=== PATIENT | male | born 1950 | race Caucasian/White ===

== ENCOUNTER 2018-06-21 09:13 | Day surgery (SDC) | payer BC ==
[2018-06-21] MEDS ORDERED: Lactated Ringers 1,000 ML IV SCH (09:45)
[2018-06-21] MEDS ORDERED: Midazolam 1 MG/ML 2 ML SDV ONE (10:18)
[2018-06-21] MEDS ORDERED: Propofol 200 MG/20 ML SDV ONE (10:18)
[2018-06-21] MEDS ORDERED: fentaNYL 100 MCG/2 ML SDV ONE (10:18)
[2018-06-21 11:47] VITALS: BP 126/47
--- NOTE | 2018-06-22 07:35 | OR ---
DATE OF PROCEDURE: 06/21/2018 PREOPERATIVE DIAGNOSES: Abdominal pain, history of colon polyps. POSTOPERATIVE DIAGNOSES: Abdominal pain, history of colon polyps, mild gastritis, diverticulosis. PROCEDURE PERFORMED: Esophagogastroduodenoscopy with antral biopsies for CLOtest and for pathology to look for Helicobacter pylori. Colonoscopy to the cecum. SURGEON: Pepito Hernandez MD ANESTHESIA: IV anesthesia with monitored anesthesia care. INDICATION: This 67-year-old white male is referred for upper and lower endoscopy because of abdominal pain. He also has a history of colon polyps. He says that he had a colonoscopy at the age he should have, which would be 51, and then 5 years later. The polyp was seen when he was 51. At 56, apparently it was clear. It is now 11 years since his last colonoscopy. He says he took a course of Nexium, which did not help with his abdominal pain. I counseled him for upper and lower endoscopy with possible biopsy, including risks and alternatives, and he gave his informed consent to proceed. DESCRIPTION OF PROCEDURE: The patient was placed in the left lateral decubitus position. IV anesthesia was administered by the Anesthesia Service. Time-out was held. The flexible video Olympus upper endoscope was passed through his mouth, down his esophagus, and into his stomach. The scope was easily passed through the pylorus into the duodenum, reaching its third portion. The scope was then slowly withdrawn, examining the mucosa throughout. The duodenal mucosa appeared unremarkable. The scope was brought up through the pylorus into the antrum. There was some mild erythema present, suggestive of mild gastritis. We did obtain antral biopsies for CLOtest and for pathology to look for Helicobacter pylori. The scope was retroflexed. The proximal stomach appeared unremarkable. The scope was straightened and brought up through the GE junction. This appeared unremarkable. The scope was brought up through the unremarkable-appearing esophagus and was removed. Next, a rectal exam was performed, which was unremarkable. The flexible video Olympus colonoscope was introduced through his anus, up his rectum, out his colon, all the way to the cecum. Once the cecum was reached, the scope was slowly withdrawn, examining the mucosa throughout. No mucosal abnormalities were noted until we reached the left colon. Here, we saw a single diverticulum. There was no bleeding or inflammation associated with it. The scope was retroflexed in the rectum with the distal rectum appearing unremarkable. The scope was straightened and removed. He tolerated the procedure well. Pepito Hernandez MD /[id number]
== END 2018-06-21 12:00 | disposition home or self-care (01) ==
LOC: JP.SDS 09:13
PROVIDERS: ATTEND Surgery
DX: R10.9 Unspecified abdominal pain (principal); K29.50 Unspecified chronic gastritis without bleeding; K57.30 Diverticulosis of large intestine without perforation or abscess without bleeding
CPT/HCPCS: 43239; 45378; 87081; 88305; J2250; J2704; J3010; J7120

== ENCOUNTER 2024-05-10 06:29 | Day surgery (SDC) | payer MEDICARE, BC ==
[2024-05-10] MEDS ORDERED: fentaNYL 250 MCG/5 ML SDV ONE (07:19)
[2024-05-10] MEDS ORDERED: Dexamethasone 4 MG/ML SDV ONE (07:20)
[2024-05-10] MEDS ORDERED: Ondansetron 4 MG/2 ML SDV ONE (07:20)
[2024-05-10] MEDS ORDERED: Glycopyrrolate 0.2 MG/ML 5 ML MDV ONE (07:20)
[2024-05-10] MEDS ORDERED: Rocuronium 50 MG/5 ML Vial ONE (07:20)
[2024-05-10] MEDS ORDERED: Propofol 200 MG/20 ML SDV ONE (07:20)
[2024-05-10] MEDS ORDERED: Succinylcholine 200 MG/10 ML MDV ONE (07:20)
[2024-05-10] MEDS ORDERED: Neostigmine Methylsulfate 10 MG/10 ML MDV ONE (07:20)
[2024-05-10] MEDS: Lactated Ringers 1,000 ML IV SCH (07:30)
[2024-05-10] MEDS: ceFAZolin 2 GM in Premix Bag 1 BAG IV ONE (08:20)
[2024-05-10] MEDS: Bupivacaine 0.25%/EPINEPHrine 1:200,000 30 ML SDV ONE (08:29)
[2024-05-10] MEDS ORDERED: Lactated Ringers 1,000 ML ONE (09:10)
[2024-05-10] MEDS ORDERED: Ketorolac 30 MG/ML SDV ONE (09:13)
[2024-05-10] MEDS ORDERED: Sugammadex Sodium 200 MG/2 ML VIAL IV ONE (09:13)
[2024-05-10] MEDS ORDERED: fentaNYL 100 MCG/2 ML SDV ONE ×2 (09:20→09:43)
[2024-05-10] MEDS: Acetaminophen 500 MG Tab PO ONE (11:33)
[2024-05-10] MEDS: oxyCODONE 5 MG Tab PO ONE (11:36)
[2024-05-10 13:12] VITALS: BP 135/88; PULSE 68
== END 2024-05-10 12:10 | disposition home or self-care (01) ==
LOC: JP.SDS 06:29
PROVIDERS: ATTEND Surgery
DX: K40.90 Unilateral inguinal hernia, without obstruction or gangrene, not specified as recurrent (principal); E78.5 Hyperlipidemia, unspecified
CPT/HCPCS: 49650; A9270; C1781; J0330; J0690; J1100; J1596; J1885; J2405; J2704; J2710; J3010; J7120; 00830-QZ; J3490